=== PATIENT | female | born 1980 | race Caucasian/White ===

== ENCOUNTER 2018-04-18 10:24 | Outpatient (REF) | payer OTHER, SELFPAY ==
--- NOTE | 2018-04-18 09:54 | SKI_PTH ---
PATIENT: LAKISHA BOWLING LOC: [facility] U#:[id number] AGE/SX: 37/F ROOM: RE04/18/[address]: Carlos Peterson DO : 1980 BED: DIS: 04/18/2018 SPEC #: [id number] RECD: 04/19/18 12:32 STATUS: YANG REGiovani #: [id number] LUIS M: 04/18/18 09:[address]: Carlos Peterson DEPT: Surgical Specimen RECD BY: Huong Quezada ENTERED: 04/19/18 12:34 SP TYPE: PAVEL PAINTER DR: Jessica Hogue Tissues: 1 - SKIN BIOPSY(SHAVE/PUNCH) Procedures: SKIN LEVEL 4 Comments: [id number]
== END 2018-04-18 10:44 ==
LOC: LBN 10:24
PROVIDERS: PCP Physician Assistant Medical; Visit Provider Otolaryngology Otolaryngology/Facial Plastic Surgery
DX: L82.1 Other seborrheic keratosis (principal)
CPT/HCPCS: 88305